=== PATIENT | male | born 1960 | race Caucasian/White ===

== ENCOUNTER → 2018-05-27 11:39 | Outpatient (CLI) | payer OTHER, SELFPAY ==
[2018-05-27 13:38] LABS: Absolute Lymphocyte Count 1.46 X10^3/ul (0.83-4.51); Absolute Neutrophil Count 2.5 X10^3/uL (2.0-7.7); Basophil# 0.04 X10^3/uL; Basophil% 0.9 % (0-1); Eosinophil# 0.22 X10^3/uL; Eosinophils% 4.8 % (0-5); Hematocrit 44.1 % (40-54); Lymphocyte # 1.46 X10^3/ul (4.0); Lymphocyte % 31.9 % (19-41); Mean Corpuscular Hgb 29.7 pg (27.0-32.0); Mean Corpuscular Volume 87.3 fL (80-94); Mean Platelet Vol. 8.5 fl (6.2-12.0); Monocyte% 6.6 % (0-10); Neutrophil # 2.54 X10^3/uL (2.7-7.7); Neutrophil % 55.6 % (47-70); Platelet Count 154 K/mm3 (150-450); RBC Distribution Width CV 14.2 % (11.6-14.6); RBC Distribution Width SD 45.3 fl (35.1-43.9); Red Blood Count 5.05 M/mm3 (4.6-6.2); White Blood Count 4.6 K/mm3 (4.4-11.0)
[2018-05-27 13:39] LABS: POSITIVE COUNT NO; POSITIVE DIFFERENTIAL NO; POSITIVE MORPHOLOGY NO
[2018-05-27 14:19] LABS: Vitamin B12 563 pg/mL (211-911); Vitamin D,25 Hydroxy 22.8 ng/mL (29.95-100.01)
[2018-05-27 14:22] LABS: ALB/GLOB Ratio 1.1 RATIO (0.9-2.4); AST(SGOT) 28 U/L (15-37); Alanine Aminotransfer ALT/SGPT 50 U/L (16-61); Albumin, Serum 3.7 g/dL (3.2-5.0); Alkaline Phosphatase 68 U/L (45-117); Anion Gap 9 (5-15); BUN 20 mg/dL (7-18); Calcium,Total 8.6 mg/dL (8.5-10.1); Chloride 105 mmol/L (98-107); Creatinine, Serum 1.11 mg/dL (0.70-1.30); EST Glomerular Filtration Rate 73 mL/min (>60); Est Glom Filt Rate - Afr Amer 88 mL/min (>60); Globulin 3.3 g/dL (2.2-4.2); Glucose 101 mg/dL (74-106); Iron 81 ug/dL (65-175); PSA,Total - Annual Screen 1.14 ng/mL (0.00-4.00); Potassium 3.8 mmol/L (3.5-5.1); Sodium Level 140 mmol/L (136-145); Thyroid Stim Hormone (TSH) 3.18 uIU/mL (0.358-3.74)
== END ==
PROVIDERS: Family Provider Family Medicine; PCP Family Medicine; Visit Provider Family Medicine
DX: R53.83 Other fatigue (principal); Z12.5 Encounter for screening for malignant neoplasm of prostate
CPT/HCPCS: 36415; 80053; 82306; 82607; 83540; 84153; 84403; 84443; 85025; G0103

== ENCOUNTER → 2021-04-17 | Outpatient (CLI) | payer OTHER, SELFPAY ==
[2021-04-17 10:45] LABS: RBC /Synovial Fluid 0.061 10^6/uL (0); Synovial Fld Mononuclear WBC % 65.3 %; Synovial Fld Polynuclear WBC # 0.042 10^3/uL; Synovial Fld Polynuclear WBC % 34.7 %
[2021-04-17 11:14] LABS: AUTO B FLUID DILUENT BKGD CT WBC <0.1 RBC <0.01 (W<.1,R<.01); CRYSTALS, BODY FLUID See PATH REV; Source / Synovial Fluid KNEE; Source- Body Fluid SYNOVIAL; Viscosity / Synovial Fluid Mod. Viscous (HIGH)
[2021-04-17 11:15] LABS: Appearance /Synovial Fluid Cloudy (CLEAR); Color / Synovial Fluid Red (Pale Yellow)
[2021-04-17 11:38] LABS: Lymph 38 %; Monocyte /Synovial Fluid 27 %; Neutrophil 35 % (0-25)
[2021-04-17 11:41] LABS: Body Fluid QC Type(s) BF2
[2021-04-18 09:05] LABS: Pathologist Comment Reviewed; Pathologist Review Reviewed
== END | disposition home or self-care (01) ==
LOC: LABSPEC 10:13
PROVIDERS: PCP Internal Medicine; Referring Provider Internal Medicine; Visit Provider Internal Medicine
DX: M25.562 Pain in left knee (principal)
CPT/HCPCS: 87070; 87075; 87205; 89050; 89051; 89060

== ENCOUNTER 2021-07-23 07:30 | Outpatient (RCR) | payer OTHER, SELFPAY ==
--- NOTE | 2021-04-23 11:32 | HP.PTEVAL ---
Patient's Visit Information GUERLINE LOPEZ is a 61 year old M referred to Physical Therapy by Dr. Emilee Ordonez MD with a diagnosis of L knee pain. Date of Evaluation: 04/23/21 Physical Therapist: RAQUEL Johnson - Visit Plan Frequency: 2x /Week Duration: 6 Weeks Plan: 2X/ week for 6 weeks for L hip and knee strengthening, L knee AROM as he struggles with end range flex and ext L knee, stretching of the HS and Quad, and progressing to more dynamic strengthening, balance and proprioception, biking for decrease inflammation with HEP and modalites to decrease inflammation and swelling as his knee was drained a few weeks ago for the second time. 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 He had a lot of pain and able to keep practicing and the next day it swelled up and popped back in place and continued to be sore and swollen and continued to give him trouble. He runs a lot. He used to run everyday 4-5 miles. He went to see Dr Ordonez. He has had trouble before and has had it drained twice and last week she drained it and had a cortizone shot. It is to the point that he can not push off on it and can not run very well. 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 He is also getting popping. Since the cortizone he has not noticed as much achiness and it comes and goes. She did not do an x-ray. He reports that his full ext is diminished on the L, unequal WB causing ache in R hip, limits in ROM into flexion as he can not squat without pain. He has not done any strength training, just very active. Aches with weather changes and at night. Has soreness and stiffness. Some nights cant get it in a comfortable position. He has a standing desk for the last 6 months - Pain L knee pain Pain Intensity (Out of 10): 4 Pain Intensity Range: 8 - Objective Gait: Walks with decrease stride on the L LE and decrease knee flexion on the L. R knee flexion AROM 126 and L 115. R Knee ext AROM 0 and L -8 degrees. L 35.4 R 34.4 mid patella girth. OHS: Shifts away from the L LE. Pt is able to heel raise B.. some weakness present on the L.. Pt struggles with DF on the L LE. Tight B HS and tight B hip flexors. Pt has increase L knee pain with prone L knee flexion. some pain with valgus stress of the L knee. Palpation: tender along the L medial joint line - Balance/Special Test Scores Lower Extremity Functional Score: 55 - Goals Goal 1:: I HEP Goal Time Frame: 6-8 Weeks Goal 2:: Increase L knee and hip strength to feel comfortable running and jumping Goal Time Frame: 6-8 Weeks Goal 3:: Be able to perform single leg heel and toe raises Goal Time Frame: 6-8 Weeks Goal 4:: Increase L knee AROM -2 degrees to 120 degrees knee flexion without pain Goal Time Frame: 6-8 Weeks Goal 5:: Be able to perform and OHS with good mechanics and equal weightbearing. Goal Time Frame: 6-8 Weeks - Rehabilitation Potential Rehabilitation Potential: Good - Anticipated Interventions Patient/Client Instruction: Educate patient on: Condition, Plan of Care For the Purpose of:: To decrease pain, To decrease swelling/inflammation, To increase ROM, To improve nutrient delivery to tissue, To increase oxygenation perfusion, To improve muscle performance and motor function, To improve ability to perform ADL's, To increase tolerance to activity/condition/position, To improve performance and independence with ADL's, To improve ability of physical actions for home/community/work/leisure, To improve gait and locomotor functions, To improve health of tissue, To decrease soft tissue restriction, To increase flexibility/ROM, To improve balance Therapeutic Exercise to Include: Strength training, Endurance training, Balance training, Coordination, Body mechanics, Flexibilty training, Gait and locomotor training, Neuromotor development, Passive ROM, Active ROM For the Purpose of:: To decrease pain, To decrease swelling/inflammation, To increase ROM, To improve nutrient delivery to tissue, To improve muscle performance and motor function, To improve ability to perform ADL's, To increase tolerance to activity/condition/position, To improve performance and independence with ADL's, To decrease level of supervision to perform tasks, To improve ability of physical actions for home/community/work/leisure, To improve gait and locomotor functions, To improve health of tissue, To decrease soft tissue restriction, To increase flexibility/ROM, To improve endurance, To improve balance Functional Training to Include: Gait training For the Purpose of:: To improve gait and locomotor functions Manual Therapy Techniques to Include: Passive ROM For the Purpose of:: To increase ROM IF ES: Yes Cryotherapy (ice pack, ice massage): Yes For the Purpose of:: To decrease pain, To decrease swelling/inflammation, To increase ROM, To improve nutrient delivery to tissue Thank you for the opportunity to evaluate your patient. For Medicare and Medicare HMO plans, please review the plan of care and approve it. It will need to be FAXED BACK to us at [phone] for Medicare purposes. For Medicare only, by signing this I certify the plan of care. Please let me know if there are questions or concerns regarding this plan of care. Physician Signature: Date:
--- NOTE | 2021-06-19 12:09 | HP.PTREVAL ---
Dr. Emilee Ordonez MD, It has been my pleasure to treat GUERLINE LOPEZ over the last 12 visits for L knee pain. Please see the progress note below for an update on the physical therapy plan of care! Subjective: Pt reports that he is better and has been doing the stretching and now it is popping in the front instead of the side No more pain in the R hip cause he is using the L LE more. He thinks that the US is helping and every once in awhile he will get flare up. He has some sharp pain when going to push off. Lateral movements has a little pain. medial pain is gone. Objective/Function: Pt complained of R hip tightness and pain after S/L hip abd so switched to clam shells. Supine green strap ITBand stretch isolated the R hip pain the pt was feeling. L knee AROM -2 degrees to 125 degrees Plan Plan: Resume strengthening (Glut), quad/ ham co contraction, push off on the L leg. Continue IT band stretches, US as needed. 2X/ week for 8 weeks for L hip and knee strengthening, L knee AROM as he struggles with end range flex and ext L knee, stretching of the HS and Quad, and progressing to more dynamic strengthening, balance and proprioception, biking for decrease inflammation with HEP and modalites to decrease inflammation and swelling as his knee was drained a few weeks ago for the second time. HEP: bridges, SLR, S/L hip abd, QS, and standing heel and toe raises Balance/Gait/Functional tests - Balance/Special Test Scores Lower Extremity Functional Score: 67 Goals Goal 1:: I HEP Goal Time Frame: 6-8 Weeks Goal Progress: Goal Met Goal 2:: Increase L knee and hip strength to feel comfortable running and jumping Goal Time Frame: 6-8 Weeks Goal Progress: Progressing Goal 3:: Be able to perform single leg heel and toe raises Goal Time Frame: 6-8 Weeks Goal 4:: Increase L knee AROM -2 degrees to 120 degrees knee flexion without pain Goal Time Frame: 6-8 Weeks Goal 5:: Be able to perform and OHS with good mechanics and equal weightbearing. Goal Time Frame: 6-8 Weeks Anticipated Interventions Patient/Client Instruction: Educate patient on: Condition, Plan of Care For the Purpose of:: To decrease pain, To decrease swelling/inflammation, To increase ROM, To improve nutrient delivery to tissue, To increase oxygenation perfusion, To improve muscle performance and motor function, To improve ability to perform ADL's, To increase tolerance to activity/condition/position, To improve performance and independence with ADL's, To improve ability of physical actions for home/community/work/leisure, To improve gait and locomotor functions, To improve health of tissue, To decrease soft tissue restriction, To increase flexibility/ROM, To improve balance Therapeutic Exercise to Include: Strength training, Endurance training, Balance training, Coordination, Body mechanics, Flexibilty training, Gait and locomotor training, Neuromotor development, Passive ROM, Active ROM For the Purpose of:: To decrease pain, To decrease swelling/inflammation, To increase ROM, To improve nutrient delivery to tissue, To improve muscle performance and motor function, To improve ability to perform ADL's, To increase tolerance to activity/condition/position, To improve performance and independence with ADL's, To decrease level of supervision to perform tasks, To improve ability of physical actions for home/community/work/leisure, To improve gait and locomotor functions, To improve health of tissue, To decrease soft tissue restriction, To increase flexibility/ROM, To improve endurance, To improve balance Functional Training to Include: Gait training For the Purpose of:: To improve gait and locomotor functions Manual Therapy Techniques to Include: Passive ROM For the Purpose of:: To increase ROM IF ES: Yes Cryotherapy (ice pack, ice massage): Yes For the Purpose of:: To decrease pain, To decrease swelling/inflammation, To increase ROM, To improve nutrient delivery to tissue Please do not hesitate to contact me at [phone] by phone or if you have questions or concerns regarding this new plan of care! Sincerely, Acacia Meier, MPT
--- NOTE | 2021-07-23 09:52 | HP.PTDCSUM_ITS ---
It has been my pleasure to treat GUERLINE LOPEZ referred by Dr. Emilee Ordonez MD, with the diagnosis of L knee pain for a total of 21 visit(s). Discharge Date: 07/23/21 Please see the following information for a summary of their discharge status. Subjective: Pt reports that he was doing better but whenever we go back into activity it acts up. He feels very stiff today. He thinks that his knee is swollen. Pt has [employer]-ball practice now and he is cutting and pushing off and he thinks the increase in hard activity for 2 hour practices is increasing the pain and swelling. L knee pain Pain Intensity (Out of 10): 4 L lateral knee pain Pain Intensity (Out of 10): 4 % Improvement: 20 Objective/Function: L girth tib tub 35.9, infrapatella 39.6, and supra patella 42.6. R girth tib tub 34.7, 36.5, and 40.4. L knee flex 121. L knee ext -6 degrees from full extension and after doing X 30 QS were able to get knee straight to -1 degree from full extension. Goal 1:: I HEP Goal Progress: Goal Met Goal 2:: Increase L knee and hip strength to feel comfortable running and jumping Goal Progress: Not Progressing Goal 3:: Be able to perform single leg heel and toe raises Goal Progress: Goal Met Goal 4:: Increase L knee AROM -2 degrees to 120 degrees knee flexion without pa in Goal Progress: Goal Met Goal 5:: Be able to perform and OHS with good mechanics and equal weightbearing. Goal Progress: Progressing Plan: DC PT back to physician referral for possible MRI and ortho consult. Pt to continue with [employer] unit at home, biking, and icing. Discharge Comments: DC PT to reassessment and possible MRI and/or ortho consult If there are questions or concerns regarding this patient's physical therapy, please feel free to call me at [phone]. Thank you for the referral of this patient. Sincerely, Acacia Meier, MPT Balance/Gait/Functional tests - Balance/Special Test Scores Lower Extremity Functional Score: 56
== END 2021-07-23 19:00 | disposition home or self-care (01) ==
LOC: PT 07:30
PROVIDERS: PCP Internal Medicine; Referring Provider Internal Medicine; Visit Provider Internal Medicine
DX: M25.562 Pain in left knee (principal)
CPT/HCPCS: 97014; 97035; 97110; 97161; 97530; G0283

== ENCOUNTER 2021-10-04 07:15 | Outpatient (CLI) | payer OTHER, SELFPAY ==
--- NOTE | 2021-10-04 07:25 | MRI_ITS ---
STUDY: MRI LEFT KNEE REASON FOR EXAM: Male, 61 years old. Lateral knee pain. Knee popping. TECHNIQUE: Standardized fat and water weighted pulse sequences were obtained in all 3 orthogonal planes. COMPARISON: X-rays of the left knee dated 08/27/2020 showing degenerative arthrosis. FINDINGS: Complex tear of the posterior horn of the medial meniscus extending into the body with extrusion of the body and anterior horn. Marked thinning of the articular cartilage of the medial femorotibial compartment with reactive subchondral bone marrow edema, subchondral cyst formation and osteophyte formation (coronal series 7 images 6-19).. Normal medial collateral ligamentous complex (MCL). Normal distal semimembranosus, gracilis and semitendinosus tendons. Complex tear of the posterior horn of the lateral meniscus with loss of substance. Tear extends into the body of the lateral meniscus with mild extrusion of the remnants of the body and anterior horn. Moderate to marked thinning of the articular cartilage of the lateral femorotibial compartment with reactive subchondral bone marrow edema and osteophyte formation (coronal series 7 images 6-17). Subchondral cyst formation at the PCL insertion (sagittal series 4 images 11-14). Normal proximal tibiofibular articulation. Normal lateral collateral (fibular) ligament. Normal popliteus tendon. Normal biceps femoris tendon. Remote tear of the anterior cruciate ligament with marked thinning/attenuation (oblique coronal series 6 images 8-16). Buckling of the posterior cruciate ligament with thickening and increased signal intensity compatible with partial tear or intrasubstance degeneration (sagittal series 4 images 9-14). Lateral subluxation and tilting of the patella with marked thinning of the articular cartilage of the patellofemoral compartment with osteophyte formation (axial series 2 images 8-16). Thickening of the lateral retinaculum (axial series 2 image 11). Normal quadriceps tendon. Normal patellar tendon. Normal Hoffa''s fat pad. Large joint effusion with medial and lateral plicae (axial series 2 images 7-14). Prepatellar subcutaneous soft tissue edema with prepatellar bursitis (sagittal series 4 image 16, axial series 2 images 5-14). The otherwise visualized osseous structures are unremarkable. MRI/Lower Ext Joint Only (Routine) IMPRESSION: Complex tears of the medial and lateral menisci with loss of substance and extrusion, as outlined above. Marked arthrosis of the medial and lateral femorotibial compartments. Remote ACL tear with marked attenuation/thinning. Buckling of the PCL with thickening and increased signal intensity compatible with intrasubstance degeneration or partial tear. Subchondral cyst formation at the insertion of the PCL in the posterior aspect of the tibia. Lateral subluxation and tilt of the patella with marked arthrosis of the patellofemoral compartment. Lateral retinacular thickening. Prepatellar subcutaneous soft tissue edema and prepatellar bursitis. Large joint effusion with medial and lateral plicae. Electronically Signed: Rivera Dickinson MD at 9:39 EDT ,
== END 2021-10-04 23:59 | disposition home or self-care (01) ==
PROVIDERS: PCP Internal Medicine; Referring Provider Internal Medicine; Visit Provider Internal Medicine
DX: M25.562 Pain in left knee (principal); G89.29 Other chronic pain
CPT/HCPCS: 73721

== ENCOUNTER → 2022-06-25 | Outpatient (CLI) | payer SELFPAY ==
--- NOTE | 2022-06-25 12:36 | CT_ITS ---
INDICATION: HIGH CHOL, LIMITED CHEST OVER READ ONLY. EXAMINATION: CT CHEST WITHOUT CONTRAST - CT Chest W/O Contrast Injection TECHNIQUE: Helically acquired images were obtained of the chest. A radiation dose optimization technique was used for this scan. IV Contrast dosage and agent: None. COMPARISON: None. FINDINGS: LUNGS, PLEURA AND LARGE AIRWAYS: No masses, consolidation, or edema. No pleural effusion or thickening. No pneumothorax. THYROID: No thyroid lesions. HEART AND PERICARDIUM: Heart size is normal. No pericardial effusion. CORONARY ARTERIES: Coronary artery calcification is seen. VESSELS: Thoracic aorta is not dilated. MEDIASTINUM AND ANAM: Small benign-appearing mediastinal lymph nodes. Esophagus is unremarkable. No hiatal hernia. UPPER ABDOMEN: There is a 1.7 cm cyst in the medial aspect of the left lobe of the liver. There is also evidence of a 6.9 mm cyst in the peripheral lateral aspect of the right lower liver in the region of the dome of the liver. BONES: No suspicious lytic or blastic abnormality. CT/Limited Chest CT Cardiac Only IMPRESSION: Hepatic cysts. Coronary artery calcification Electronically Signed: Chuy Menard MD at 15:39 EST ,
[2022-06-25 12:56] VITALS: BP 114/70; PULSE 65; RESP 14; O2SAT 100; BMI 25.1
--- NOTE | 2022-06-25 18:06 | CA.SCORE ---
Calcium Scoring Date of Study:: 06/25/22 Indications Indications: Hyperlipidemia Coronary Calcium Scoring: High-resolution Computed Tomographic imaging of the chest was performed on 06-25-2022, with particular attention paid to the coronary arteries. Images from the examination were analyzed for the presence and extent of coronary artery calcification , using coronary calcium quantification software. The patient tolerated the procedure well and there were no complications. The results of the coronary calcification analysis are provided below. Findings Coronary Artery Left Main (LM): 0 Left Anterior Descending (LAD): 39.1 Left Circumflex (LCX): 1.99 Right Coronary Artery (RCA): 10.7 Total Agatston Score: 51.79 Percentile Ranking: According to prepublished reference tables between 25% and 50% of patients of the same gender and similar age had the same and/or lower scores. Calcium Scoring Interpretation: 0 No identifiable atherosclerotic plaque. Very low cardiovascular disease risk. <5% chance of presence coronary artery disease A Negative Examination 1-10 Minimal Plaque burden. Significant coronary artery disease very unlikely. 11-100 Mild plaque burden. Likely mild or minimal coronary atherosclerosis. 101-400 Moderate plaque burden Moderate non-obstructive coronary artery disease highly likely. Over 400 Extensive plaque burden. High likelihood of at least one significant coronary stenosis (>50% diameter) Calcium Score: 11 - 100 Likely mild or minimal coronary stenosis Conclusion: Continue cardiovascular risk factor evaluation and care as deemed appropriate. This note was generated using a voice recognition system and there may be incorrect words, spelling or punctuation that were not noted when reviewing the office note prior to saving.
== END | disposition home or self-care (01) ==
PROVIDERS: PCP Internal Medicine; Visit Provider Internal Medicine
DX: E78.00 Pure hypercholesterolemia, unspecified (principal)
CPT/HCPCS: 75571; 76380

== ENCOUNTER → 2022-12-31 | Outpatient (CLI) | payer OTHER, SELFPAY ==
--- NOTE | 2022-12-31 07:43 | US_ITS ---
STUDY: ABDOMINAL ULTRASOUND - RIGHT UPPER QUADRANT REASON FOR VISIT: Male, 62 years old BENIGN LIVER CYST TECHNIQUE: Ultrasound evaluation of the right upper quadrant was performed with real-time and static armenta-scale imaging. TECHNICAL QUALITY: Adequate. COMPARISON: Comparison is made with prior CT scan dated June 25, 2022. FINDINGS: Liver: The liver measures 15.5 cm. There is normal echogenicity of the liver. The bile ducts are within normal limits. There is hepatic color flow. The direction of portal flow is hepatopetal. There is a 1.1 cm x 1.3 cm x 1.1 cm cyst in the left lobe of the liver. Gallbladder: Normal distended gallbladder. The gallbladder wall measures 2.0 mm. There is a negative sonographic Villarreal''s sign. There is no pericholecystic fluid. There are no gallstones. Common Bile Duct (C.B.D.): The common bile duct measures 4 mm. Pancreas: There is nonvisualization of the pancreas due to overlying bowel gas. Right Kidney: Normal size of the right kidney. The right kidney measures 10.8 cm x 5.3 cm x 6 cm. Normal renal cortex. The right cortex measures 1.8 cm. There is no demonstrated renal mass or cyst. There is no right hydronephrosis. US/Liver IMPRESSION: 1.1 cm x 1.3 cm x 1.1 cm cyst in the left lobe of the liver. Electronically Signed: Chuy Menard MD at 12:37 EDT ,
== END | disposition home or self-care (01) ==
LOC: US 07:42
PROVIDERS: PCP Internal Medicine; Referring Provider Internal Medicine; Visit Provider Internal Medicine
DX: K76.89 Other specified diseases of liver (principal)
CPT/HCPCS: 76705

== ENCOUNTER → 2023-11-09 | Outpatient (CLI) | payer OTHER, SELFPAY ==
--- NOTE | 2023-11-09 06:37 | MRI_ITS ---
STUDY: MRI RIGHT KNEE REASON FOR EXAM: Male, 63 years old. Medial, lateral, and posterior right knee pain. Evaluate for internal derangement of the right knee. TECHNIQUE: Standardized fat and water weighted pulse sequences were obtained in all 3 orthogonal planes. COMPARISON: None. FINDINGS: There is a partial radial tear of the posterior horn of the medial meniscus (sagittal PD series 3 images 29-32). There is degenerative arthrosis of the medial femorotibial compartment with joint space narrowing, marginal osteophyte formation, moderate grade chondromalacia, and subchondral marrow edema on both sides of the joint. Normal medial collateral ligamentous complex (MCL). Normal distal semimembranosus, gracilis and semitendinosus tendons. There is mild free edge fraying of the posterior horn of the lateral meniscus. There is degenerative arthrosis of the lateral femorotibial compartment with joint space narrowing, marginal osteophyte formation, and moderate to high-grade chondromalacia. Normal proximal tibiofibular articulation. Normal lateral collateral (fibular) ligament. Normal popliteus tendon. Normal biceps femoris tendon. There is an interstitial sprain of the ACL without focal tear or laxity (sagittal T2 series 4 images 12-13). Normal posterior cruciate ligament (PCL). There is degenerative arthrosis of the patellofemoral compartment with joint space narrowing, marginal osteophyte formation, and moderate grade chondromalacia. Congruent patellofemoral articulation. Normal medial and lateral patellar retinaculum. Normal quadriceps tendon. Normal patellar tendon. Normal Hoffa''s fat pad. There is a moderate joint effusion. There is no popliteal cyst. There is mild subcutaneous soft tissue edema along the anterior aspect of the knee. There is no acute fracture. MRI/Lower Ext Joint Only (Routine) IMPRESSION: Partial radial tear of the posterior horn of the medial meniscus. Mild free edge fraying of the posterior horn of the lateral meniscus. Tricompartment degenerative arthrosis. Interstitial sprain of the ACL without focal tear or laxity. Moderate joint effusion. Mild subcutaneous soft tissue edema along the anterior aspect of the knee. Electronically Signed: Ruy Posadas MD at 8:27 EDT ,
== END | disposition home or self-care (01) ==
PROVIDERS: PCP Internal Medicine; Referring Provider Internal Medicine; Visit Provider Internal Medicine
DX: M23.91 Unspecified internal derangement of right knee (principal)
CPT/HCPCS: 73721

== ENCOUNTER → 2025-06-01 | Outpatient (CLI) | payer OTHER, SELFPAY ==
[2025-06-01 11:23] LABS: Mucous, Urine 0 SEEN /hpf (<or=2+); Squamous Epithelial Cells - UA 0 SEEN /hpf (0-5)
[2025-06-01 11:27] LABS: Color, Urine Yellow (Yellow); Glucose, Dipstick Normal (Normal); Ketone-Dipstick Negative (Negative); Leukocyte Esterase-Dipstick Negative /ul (Negative); Nitrite-Dipstick Negative (Negative); Occult Blood-Urine 10 /ul (Negative); Protein-Dipstick 15 mg/dl (Negative); Specific Gravity, Urine 1.015 (1.002-1.030); Urine Bilirubin Dipstick Negative (Negative)
[2025-06-01 11:28] LABS: Hematocrit 52.4 % (40-54); Immature Granulocytes Count 0.010 X10^3/uL (0.0-0.0); Mean Corp Hgb Conc 34.4 g/dL (32-36); Mean Corpuscular Volume 90.7 fL (80-94); Mean Platelet Vol. 8.8 fl (6.2-12.0); NRBC Flagged by Analyzer 0 % (0-5); Platelet Count 181 K/mm3 (150-450); RBC Distribution Width CV 12.8 % (11.6-14.6); RBC Distribution Width SD 42.9 fl (35.1-43.9); Red Blood Count 5.78 M/mm3 (4.6-6.2); White Blood Count 5.0 K/mm3 (4.4-11.0)
[2025-06-01 11:33] LABS: Red Blood Cells-Urine 0-5 SEEN /hpf (0-5)
[2025-06-01 11:42] LABS: Hemoglobin 18.0 g/dL (13.0-16.5)
[2025-06-01 11:52] LABS: Creatinine, Urine (random) 114.00 mg/dL (39.00-259.00); Microalbumin,Random Urine < 12.0 mg/L (<20 mg/L)
[2025-06-01 11:58] LABS: AST(SGOT) 37 U/L (<=37); Alanine Aminotransfer ALT/SGPT 48 U/L (<=46); Albumin, Serum 4.5 g/dL (3.4-4.8); Alkaline Phosphatase 72 U/L (40-129); Anion Gap 10 (5-15); BUN 25 mg/dL (4-19); BUN/Creat Ratio 16.9 RATIO (10-20); Calcium,Total 9.5 mg/dL (7.6-11.0); Carbon Dioxide 29.0 mmol/L (21.0-32.0); Chloride 102 mmol/L (98-108); Globulin 2.2 g/dL (2.2-4.2); Glucose 90 mg/dL (70-99); Potassium 4.4 mmol/L (3.3-5.1)
[2025-06-06 20:08] LABS: PSA, Total 1.9 ng/mL (0.0-4.0)
== END | disposition home or self-care (01) ==
LOC: LABSPEC 11:14
PROVIDERS: PCP Internal Medicine; Referring Provider Internal Medicine; Visit Provider Internal Medicine
DX: Z12.5 Encounter for screening for malignant neoplasm of prostate (principal); E78.5 Hyperlipidemia, unspecified; E34.9 Endocrine disorder, unspecified; R79.89 Other specified abnormal findings of blood chemistry
CPT/HCPCS: 80053; 81001; 82043; 82570; 84153; 84402; 84439; 85025; 87077; 87086; 87088